=== PATIENT | female | born 2000 | race Two or more races ===

== ENCOUNTER 2020-03-06 03:15 | Emergency (ER) | payer OTHER ==
[~2020-03-06] VITALS: Ht 167.6 cm; Wt 83.8 kg
[2020-03-06 03:18] VITALS: BP 121/86
[2020-03-06] MEDS ORDERED: METOCLOPRAMIDE 5 MG/ML, 2ML ONE (03:45)
[2020-03-06] MEDS ORDERED: METOCLOPRAMIDE 5 MG/ML, 2ML IVPush ONE (04:00)
[2020-03-06] MEDS ORDERED: SODIUM CHLORIDE 0.9% 1,000ML IVBOLUS ONE (04:00)
[2020-03-06 04:06] LABS: BASOPHILS % (AUTO) 0 % (0-1); EOSINOPHILS # (AUTO) 0.02 x10^3/uL (0-0.8); EOSINOPHILS % (AUTO) 0 % (1-7); LYMPHOCYTES # (AUTO) 2.03 x10^3/uL (1-6.1); LYMPHOCYTES % (AUTO) 17 % (22-44); MD NO; MEAN CORPUSCULAR HEMOGLOBIN 28.8 pg (27.0-34.8); MEAN CORPUSCULAR HGB CONC 33.2 g/dL (32.4-35.8); MEAN CORPUSCULAR VOLUME 86.8 fL (80-100); MEAN PLATELET VOLUME 9.4 fL (7.4-10.4); MONOCYTES # (AUTO) 0.18 x10^3/uL (0-1.4); MONOCYTES % (AUTO) 2 % (2-9); NEUTROPHILS % (AUTO) 81 % (42-75); PLATELET COUNT 193 x10^3/uL (130-400); RED CELL DISTRIBUTION WIDTH 14.6 % (9.6-15.2)
[2020-03-06 04:10] LABS: ALANINE AMINOTRANSFERASE 20 U/L (12-78); ALBUMIN 3.7 g/dL (3.4-5.0); ANION GAP 6 mmol/L (5-15); CALCIUM 8.9 mg/dL (8.5-10.1); CHLORIDE 108 mmol/L (98-107); CREATININE 1.72 mg/dL (0.55-1.02)
[2020-03-06 04:14] LABS: ALKALINE PHOSPHATASE 58 U/L (45-117); BILIRUBIN,TOTAL 0.4 mg/dL (0.2-1.0); TOTAL PROTEIN 7.3 g/dL (6.4-8.2)
[2020-03-06 04:25] LABS: MICROSCOPIC AUTO
[2020-03-06 04:29] LABS: CULTURE INDICATED? YES
== END 2020-03-06 06:13 | disposition home or self-care (01) ==
LOC: ED 04:15
DX: K29.00 Acute gastritis without bleeding (principal); R11.2 Nausea with vomiting, unspecified; R53.1 Weakness
CPT/HCPCS: 36415; 74021; 76700; 80053; 81001; 83690; 84703; 85025; 87086; 96361; 96374; 99285; J2765; J7030

== ENCOUNTER 2021-04-29 12:11 | Emergency (ER) | payer OTHER ==
[~2021-04-29] VITALS: Ht 167.6 cm; Wt 70.2 kg
[2021-04-29 14:31] LABS: BASOPHILS % (AUTO) 0 % (0-1); EOSINOPHILS % (AUTO) 1 % (1-7); LYMPHOCYTES % (AUTO) 18 % (22-44); MEAN CORPUSCULAR HEMOGLOBIN 30.9 pg (27.0-34.8); MEAN CORPUSCULAR HGB CONC 33.7 g/dL (32.4-35.8); MONOCYTES % (AUTO) 5 % (2-9); NEUTROPHILS % (AUTO) 76 % (42-75); PLATELET COUNT 217 x10^3/uL (130-400); RED BLOOD COUNT 4.86 x10^6/uL (3.82-5.3); RED CELL DISTRIBUTION WIDTH 13.4 % (9.6-15.2)
[2021-04-29 14:39] LABS: ALANINE AMINOTRANSFERASE 22 U/L (12-78); ALBUMIN 3.5 g/dL (3.4-5.0); ANION GAP 8 mmol/L (5-15); CALCIUM 8.9 mg/dL (8.5-10.1); CHLORIDE 106 mmol/L (98-107); CREATININE 0.62 mg/dL (0.55-1.02)
[2021-04-29] MEDS ORDERED: ACETAMINOPHEN 500 MG TABLET ONE (14:40)
--- NOTE | 2021-04-29 14:42 | NUR ---
Report from FEDE Flowers. US at bedside.
[2021-04-29 14:44] LABS: MICROSCOPIC NOT IND
--- NOTE | 2021-04-29 14:44 | NUR ---
REPORT OF PT TO FEDE KERN. ALL QUESTIONS ANSWERED.
[2021-04-29 14:55] LABS: ALKALINE PHOSPHATASE 47 U/L (45-117); BILIRUBIN,TOTAL 0.4 mg/dL (0.2-1.0); TOTAL PROTEIN 6.9 g/dL (6.4-8.2)
[2021-04-29] MEDS ORDERED: ACETAMINOPHEN 500 MG TABLET PO ONE (15:00)
[2021-04-29] MEDS ORDERED: LIDOCAINE 1%-EPI 1:100K, 20ML INFIL ONE (16:00)
[2021-04-29 16:34] VITALS: BP 109/63
== END 2021-04-29 16:43 | disposition home or self-care (01) ==
LOC: ED 13:49
DX: O26.891 Other specified pregnancy related conditions, first trimester (principal); R51.9 Headache, unspecified; R53.1 Weakness; R42 Dizziness and giddiness; Z3A.09 9 weeks gestation of pregnancy
CPT/HCPCS: 36415; 76801; 80053; 81003; 84702; 85025; 99284

== ENCOUNTER 2021-05-05 10:57 | Emergency (ER) | payer OTHER ==
[~2021-05-05] VITALS: Ht 167.6 cm; Wt 71.2 kg
--- NOTE | 2021-05-05 12:15 | NUR ---
pt presents to ed with c/o syncopal episode this morning witnessed by sister, per sister she was caught before hitting ground. pt states headache but denies hitting head. pt a&o, resps even and unlabored, vss, nadn.
[2021-05-05] MEDS ORDERED: SODIUM CHLORIDE 0.9% 1,000ML IVBOLUS ONE (12:30)
[2021-05-05] MEDS ORDERED: ACETAMINOPHEN 500 MG TABLET PO ONE (12:30)
[2021-05-05] MEDS ORDERED: SODIUM CHLORIDE FLUSH 10ML SYR IVF ONE (12:30)
[2021-05-05] MEDS ORDERED: ACETAMINOPHEN 500 MG TABLET ONE (12:34)
[2021-05-05 12:59] LABS: BASOPHILS % (AUTO) 0 % (0-1); EOSINOPHILS % (AUTO) 0 % (1-7); LYMPHOCYTES % (AUTO) 14 % (22-44); MONOCYTES % (AUTO) 5 % (2-9); NEUTROPHILS % (AUTO) 81 % (42-75); PLATELET COUNT 203 x10^3/uL (130-400); RED CELL DISTRIBUTION WIDTH 13.6 % (9.6-15.2)
--- NOTE | 2021-05-05 12:59 | NUR ---
PIV placed, labs drawn, fluids infusing, pt medicated per order, tolerated well. pt a&o, resps even and unlabored, vss, all monitors attached, nsr, nadn.
[2021-05-05 13:00] LABS: MICROSCOPIC NOT IND
[2021-05-05 13:06] LABS: CHLORIDE 110 mmol/L (98-107)
[2021-05-05 13:29] LABS: ALANINE AMINOTRANSFERASE 18 U/L (12-78); ALBUMIN 3.3 g/dL (3.4-5.0); ALKALINE PHOSPHATASE 43 U/L (45-117); ANION GAP 5 mmol/L (5-15); BILIRUBIN,TOTAL 0.3 mg/dL (0.2-1.0); CALCIUM 8.8 mg/dL (8.5-10.1); CREATININE 0.53 mg/dL (0.55-1.02); TOTAL PROTEIN 6.8 g/dL (6.4-8.2)
[2021-05-05 13:30] VITALS: BP 92/48
--- NOTE | 2021-05-05 14:22 | NUR ---
pt educated on discharge, verbalized understanding. vss, nadn. ambulatory to dc with steady gait.
== END 2021-05-05 14:25 | disposition home or self-care (01) ==
LOC: ED 14:00
DX: O26.891 Other specified pregnancy related conditions, first trimester (principal); R55 Syncope and collapse; R51.9 Headache, unspecified; Z3A.08 8 weeks gestation of pregnancy
CPT/HCPCS: 36415; 71045; 80053; 81003; 84702; 85025; 93005; 96360; 99285; J7030